=== PATIENT | male | born 1985 | race Caucasian/White ===

== ENCOUNTER 2018-04-02 18:27 | Emergency (ER) | payer MEDICAID ==
[~2018-04-02] VITALS: Ht 190.5 cm; Wt 93.2 kg
[2018-04-02 18:46] VITALS: BP 147/99
[2018-04-02] MEDS ORDERED: LIB5 PO (18:50)
[2018-04-02] MEDS ORDERED: METO50 PO (18:50)
== END 2018-04-02 19:35 | disposition left against medical advice (07) ==
LOC: EMS 18:29
DX: Z76.0 Encounter for issue of repeat prescription (principal); I10 Essential (primary) hypertension; Z53.21 Procedure and treatment not carried out due to patient leaving prior to being seen by health care provider